=== PATIENT | male | born 1985 | race African-American/Black ===

== ENCOUNTER 2016-12-28 15:58 | Emergency (ER) | payer OTHER ==
[~2016-12-28] VITALS: Ht 175.3 cm; Wt 66.7 kg
--- NOTE | 2016-12-28 16:42 | Emergency Room Report ---
History of Present Illness General Chief Complaint: Back Pain-No Injury Source: Patient Present Illness HPI 31-year-old male presents to the emergency department complaining of exacerbation of his chronic back pain in the mid upper back it out of 10 in severity localized times 2 weeks. Patient states he has had chronic back pain since he was 19 however he recently changed doctors and his new pain management physician requested that he had x-rays performed. Patient denies trauma or fall , fevers, chills, difficulty breathing. Patient denies history of previous fractures. he states he was prescribed soma regularly for his symptoms. Patient also is requesting blood work. Denies CP, Palpitations, LOC, AMS, dizziness, Changes in Vision, Sensation, paresthesias, or a sudden severe headache. Allergies: Coded Allergies: No Known Allergies (Unverified , 12/28/16) Patient History Past Medical History: see triage record Past Surgical History: none Pertinent Family History: none Immunizations: UTD Reviewed Nursing Documentation: PMH: Agreed, PSxH: Agreed Nursing Documentation-PMH Hx Cardiac Problems: No - chronic back pain and psych Review of Systems All Other Systems: negative except mentioned in HPI Physical Exam Vital Signs Date Time Temp Pulse Resp B/P (MAP) Pulse Ox O2 Delivery O2 Flow Rate FiO2 12/28/16 16:05 97.9 61 18 117/72 95 Sp02 EP Interpretation: reviewed, normal General Appearance: no apparent distress, alert, GCS 15, non-toxic Head: normocephalic, atraumatic Eyes: bilateral eye normal inspection, bilateral eye PERRL ENT: hearing grossly normal, normal voice Neck: full range of motion Respiratory: lungs clear, normal breath sounds, no wheezing, speaking full sentences Cardiovascular #1: regular rate, rhythm Rectal: deferred Genitourinary: normal inspection Musculoskeletal: back normal, gait/station normal, normal range of motion, tender - midline and Paraspinal Thoracic TTP, no obvious deformity, no erythema , no step-off. Neurologic: alert, oriented x3, responsive, motor strength/tone normal, sensory intact, normal gait, speech normal Psychiatric: judgement/insight normal, memory normal, mood/affect normal Skin: normal inspection, normal color, warm/dry, well hydrated Lymphatic: no adenopathy Medical Decision Making PA Attestation Dr. medellin is my supervising Physician whom patient management has been discussed with. Diagnostic Impression: Primary Impression: Back pain Qualified Codes: M54.6 - Pain in thoracic spine Additional Impression: Encounter for medical screening examination ER Course 31-year-old male presents to the emergency department complaining of exacerbation of his chronic back pain in the mid upper back it out of 10 in severity localized times 2 weeks. Patient states he has had chronic back pain since he was 19 however he recently changed doctors and his new pain management physician requested that he had x-rays performed. Patient denies trauma or fall , fevers, chills, difficulty breathing. Patient denies history of previous fractures. he states he was prescribed soma regularly for his symptoms. Patient also is requesting blood work. Denies CP, Palpitations, LOC, AMS, dizziness, Changes in Vision, Sensation, paresthesias, or a sudden severe headache. denies recent spinal procedures, denies hx of cancer. -Discussed with patient that blood work would not have a bearing on his diagnosis today as he is a chronic condition with no acute changes in character from previous symptoms. Discussed with patient that his primary care physician should be ordering lab work in addition to x-rays however we will do imaging here in the emergency department. Ddx considered but are not limited to Fracture, dislocation, contusion, Sprain/ Strain/Spasm. epidural abscess. Vital signs: are WNL, pt. is afebrile H&PE are most consistent with musculoskeletal injury will perform imaging to r/ o fractures/dislocations. ORDERS: - X-ray Thoracic Spine 2 views - negative for fx, Dislocation, or significant soft tissue injury, per official radiology report. ED INTERVENTIONS: - none required at this time. Pt. is given a copy of his X-rays to take with him to his follow up appt. pt. also given an rx for motrin. DISCHARGE: At this time pt. is stable for d/c to home. Will provide printed patient care instructions, and any necessary prescriptions. Care plan and follow up instructions have been discussed with the patient prior to discharge. Last Vital Signs Date Time Temp Pulse Resp B/P (MAP) Pulse Ox O2 Delivery O2 Flow Rate FiO2 12/28/16 16:05 97.9 61 18 117/72 95 Disposition: HOME, SELF-CARE Condition: Stable Scripts Ibuprofen* (MOTRIN*) 600 Mg Tablet 600 MG ORAL THREE TIMES A DAY, #30 TAB 0 Refills Prov: Vera Fritz P.A. 12/28/16 Patient Instructions: Back Pain, Adult, Medical Screening Exam Additional Instructions: Take medications as directed. Follow up with a Primary Care Provider in 3-5 days, even if your symptoms have resolved. --Please review list of primary care clinics, if you do not already have a primary care provider Return sooner to ED if new symptoms occur, or current symptoms become worse. - Please note that this Emergency Department Report was dictated using [employer] drier operator technology software, occasionally this can lead to erroneous entry secondary to interpretation by the dictation equipment. Vera Fritz Dec 28, 2016 16:42
[2016-12-28 16:59] VITALS: BP 117/72
[2016-12-28] MEDS ORDERED: IBUPROFEN600 MG ORAL (17:21)
[2016-12-28 17:34] VITALS: BP 117/72
--- NOTE | 2016-12-29 09:58 | Diagnostic Imaging Report ---
Indications: Back pain Technique: Two views of the thoracic spine Comparison: None Findings: There is minimal thoracolumbar scoliotic deformity, possibly artifact of positioning. Otherwise normal bony alignment. Vertebral body heights are preserved. Disc spaces are preserved. Pedicles are intact. No gross paraspinous mass. Impression: Negative This agrees with the preliminary interpretation provided overnight by [facility].
== END 2016-12-28 17:40 | disposition home or self-care (01) ==
LOC: EMR 16:40
DX: M54.9 Dorsalgia, unspecified (principal); G89.29 Other chronic pain
CPT/HCPCS: 72070; 99283